=== PATIENT | male | born 1960 | race Asian ===

== ENCOUNTER 2022-12-14 15:58 | Inpatient (IN) | payer MEDICAID ==
[~2022-12-14] VITALS: Ht 170.2 cm; Wt 67.6 kg
[2022-12-14 16:00] VITALS: BP_SYST 138; PULSE 88; RESP 19; TEMP 98.6; O2SAT 100
--- NOTE | 2022-12-14 16:00 | NUR ---
BROUGHT IN BY [facility], PLACED IN BED #2 AND TRIAGED. REPORT GIVEN TO NIMESH
--- NOTE | 2022-12-14 16:19 | NUR ---
DR DESHPANDE IN ROOM FOR EXAM
[2022-12-14] MEDS ORDERED: MAGNESIUM SULFATE 50 ML IV ONE (16:30)
[2022-12-14] MEDS ORDERED: methylPREDNISolone SOD SUCC/PF 62.5 MG/ML VIAL IVP ONE (16:30)
--- NOTE | 2022-12-14 16:41 | NUR ---
ASSUMED CARE, PT IN NAD. RESP EVEN AND UNLABORED, ON RA @99%. SKIN W/D/I. MEDS GIVEN BY COVERING RN MICHELE. WILL CONT TO MONITOR.
[2022-12-14 16:56] LABS: BASOPHILS % (AUTO) 0.6 % (0.0-2.0); EOSINOPHILS # (AUTO) 0.2 K/uL (0.0-0.4); EOSINOPHILS % (AUTO) 3.2 % (0.0-4.0); HEMATOCRIT 44.6 % (36-54); LYMPHOCYTES # (AUTO) 1.5 K/uL (1.0-5.5); LYMPHOCYTES % (AUTO) 21.3 % (20.5-51.5); MEAN CORPUSCULAR HEMOGLOBIN 30 pg (27-31); MEAN CORPUSCULAR HGB CONC 34 % (32-36); MEAN CORPUSCULAR VOLUME 88 fL (79.0-98.0); MONOCYTES # (AUTO) 0.5 K/uL (0.0-1.0); MONOCYTES % (AUTO) 7.4 % (1.7-9.3); NEUTROPHILS # (AUTO) 4.9 K/uL (1.8-7.7); NEUTROPHILS % (AUTO) 67.5 % (40.0-70.0); PLATELET COUNT (AUTO) 293 K/uL (130-430); RED BLOOD CELL COUNT(AUTO) 5.06 MIL/uL (4.2-6.2); RED CELL DISTRIBUTION WIDTH 14.2 % (9.0-15.0); WHITE BLOOD COUNT (AUTO) 7.2 K/uL (4.8-10.8)
[2022-12-14 17:14] LABS: ALANINE AMINOTRANSFERASE 19 U/L (12-78); ALBUMIN 3.5 g/dL (3.4-4.8); ANION GAP 8 (5-15); ASPARTATE AMINOTRANSFERASE 17 U/L (10-37); CALCIUM 8.8 mg/dL (8.4-11.0); CHLORIDE 102 mmol/L (98-107); CREATININE 1.68 mg/dL (0.55-1.30); GFR AFRICAN AMERICAN 54 mL/min (>90); GLUCOSE 162 mg/dL (70-99); TOTAL BILIRUBIN 0.5 mg/dL (0.0-1.0); UREA NITROGEN, BLOOD 33 mg/dL (8-21)
[2022-12-14] MEDS ORDERED: ENOXAPARIN SODIUM 80 MG/0.8 ML SYRINGE SUBCUT ONE (18:15)
--- NOTE | 2022-12-14 18:15 | NUR ---
Admit bed requested Patient will be admitted to care of . Admitted to TELE unit. Diagnosis ACUTE RESP DISTRESS Inpatient (Yes or No) Y Observation (Yes or No) N Orientation concerns or request close to nursing station (Yes or No) N Covid Status NA On vent or bipap N Isolation requirements N Needs a sitter N From Home (Yes or if No enter name of facility) Y Requires Dialysis (Yes or No) N Med Rec Completed (Yes of No) Y
[2022-12-14] MEDS ORDERED: LIP80 PO (18:43)
[2022-12-14] MEDS ORDERED: OMEP20CA15 PO (18:43)
[2022-12-14] MEDS ORDERED: SACU1TAB PO (18:43)
[2022-12-14] MEDS ORDERED: DAPA10TA PO (18:43)
[2022-12-14] MEDS ORDERED: SEMA1PEN3 SQ (18:43)
[2022-12-14] MEDS ORDERED: COR3.125 PO (18:43)
[2022-12-14] MEDS ORDERED: INSU100I26 SQ (18:43)
[2022-12-14] MEDS ORDERED: METF-518 PO (18:43)
[2022-12-14] MEDS ORDERED: CLOP75TA32 PO (18:43)
[2022-12-14] MEDS ORDERED: INSU100V35 SQ (18:43)
--- NOTE | 2022-12-14 18:43 | NUR ---
Medication reconciliation completed with information provided by LIST FROM FAMILY MEMBER. Any prior medication reconciliation on file was reviewed and corrected.
[2022-12-14] MEDS ORDERED: POTASSIUM CHLORIDE 20 MEQ TAB.PRT.SR PO PRN (19:15)
[2022-12-14] MEDS ORDERED: MORPHINE 2 MG/ML INJ. SYRINGE IVP PRN ×2 (19:15)
[2022-12-14] MEDS ORDERED: MAGNESIUM SULFATE 50 ML IV PRN (19:15)
[2022-12-14] MEDS ORDERED: MUPIROCIN 2% TOPICAL OINTMENT 22 GM NS PRN (19:15)
[2022-12-14] MEDS ORDERED: ACETAMINOPHEN 325 MG TABLET PO PRN (19:15)
[2022-12-14] MEDS ORDERED: NALOXONE HCL 0.4 MG/ML AMP (NARCAN) IVP PRN ×2 (19:15)
[2022-12-14] MEDS ORDERED: LORazepam 2 MG/ML VIAL IVP PRN (19:15)
[2022-12-14] MEDS ORDERED: ONDANSETRON HCL 4 MG/2 ML VIAL IVP PRN (19:15)
[2022-12-14] MEDS ORDERED: DEXTROSE 50% JECT 50 ML DISP.SYRIN IVP PRN (19:15)
[2022-12-14] MEDS ORDERED: DOCUSATE SODIUM 100 MG CAPSULE PO PRN (19:15)
--- NOTE | 2022-12-14 19:15 | NUR ---
RECEIVED FOR CARE AFTER REPORT. PLAN OF CARE EXPLAINED TO PT ANF FAMILY.
[2022-12-14] MEDS ORDERED: ENOXAPARIN SODIUM 80 MG/0.8 ML SYRINGE SQ SCH (21:00)
[2022-12-14] MEDS ORDERED: SACUBITRIL/VALSARTAN 24 MG-26 MG 1 TABLET PO SCH (21:00)
--- NOTE | 2022-12-14 21:00 | NUR ---
PT RESTING QUIETLY WITH NO SIGNS OF ACUTE DISTRESS.
[2022-12-14] MEDS ORDERED: INSULIN Lispro 100 UNITS/ML, 3 ML VIAL (humaLOG) ONE (21:34)
[2022-12-14] MEDS: INSULIN LISPRO SLIDING SCALE 100 UNITS/ML, 3 ML VIAL (humaLOG) SUBCUT PRN (21:40)
[2022-12-14] MEDS: CARVEDILOL 3.125 MG TABLET (COREG) PO SCH (22:04)
[2022-12-14] MEDS ORDERED: CARVEDILOL 6.25 MG TABLET (COREG) ONE (22:04)
--- NOTE | 2022-12-14 23:00 | NUR ---
PT RESTING QUIETLY WITH NO SIGNS OF ACUTE DISTRESS.
[2022-12-15] VITALS (7 sets, daily range): BP systolic 122–144; PULSE 86–94; RESP 15–16; TEMP 97.8–98.2; O2SAT 86–100
--- NOTE | 2022-12-15 01:00 | NUR ---
PT RESTING WITH FAMILY AT BEDSIDE. NO SIGNS OF DISTRESS
[2022-12-15] MEDS ORDERED: ATORVASTATIN 20 MG TABLET ONE (01:11)
--- NOTE | 2022-12-15 03:00 | NUR ---
PT RESTING WITH NO ACUTE DISTRESS
--- NOTE | 2022-12-15 03:27 | NUR ---
CONSULTATION PAGED/CALLED Reason for Consultation: HIGH TROP Person Who was Notified: SAE Consulting Physician: BRI [employer]ne[employer] Specialty: Ordering Physician: DANUTA
[2022-12-15 04:40] LABS: BASOPHILS % (AUTO) 0.4 % (0.0-2.0); HEMATOCRIT 45.4 % (36-54); HEMOGLOBIN 15.1 g/dL (14.0-18.0); LYMPHOCYTES % (AUTO) 7.6 % (20.5-51.5); MEAN CORPUSCULAR HEMOGLOBIN 29 pg (27-31); MEAN CORPUSCULAR HGB CONC 33 % (32-36); MEAN CORPUSCULAR VOLUME 87 fL (79.0-98.0); MONOCYTES # (AUTO) 0.2 K/uL (0.0-1.0); MONOCYTES % (AUTO) 1.7 % (1.7-9.3); NEUTROPHILS # (AUTO) 11.8 K/uL (1.8-7.7); NEUTROPHILS % (AUTO) 90.3 % (40.0-70.0); PLATELET COUNT (AUTO) 308 K/uL (130-430); RED BLOOD CELL COUNT(AUTO) 5.22 MIL/uL (4.2-6.2); RED CELL DISTRIBUTION WIDTH 14.4 % (9.0-15.0); WHITE BLOOD COUNT (AUTO) 13.1 K/uL (4.8-10.8)
--- NOTE | 2022-12-15 05:00 | NUR ---
PT ASLEEP WITH FAMILY AT BEDSIDE.
[2022-12-15 05:07] LABS: CALCIUM 9.1 mg/dL (8.4-11.0); CREATININE 1.43 mg/dL (0.55-1.30)
--- NOTE | 2022-12-15 07:15 | NUR ---
RECEIVED PT FROM TIFFANY NAGEL. ASSUMED CARE. PT IS AAXO4. ON R/A. NO COUGH OR RESPIRATORY DISTRESS NOTED. NORMAL S1S2. DENIES N/V/D/C. DISTAL PULSES NORMAL, SKIN CDI, NO EDEMA. DENIES PAIN. SIDERAILS UP X2, DAUGHTER AT BEDSIDE.
--- NOTE | 2022-12-15 07:21 | NUR ---
SPOKE TO DR. TIPTON AND INFORMED HER PT HAS ORDERS FOR SCHEDULED LOVENOX AND PLAVIX. SHE STATED TO DISCONTINUE LOVENOX, AND LET DR. GREGORY FOLLOW UP. DR. TIPTON WAS ALSO INFORMED THAT THE [facility] SHIFT NURSE SHONA ALLEN WAS UNABLE TO GIVE THE ORDERED ENTRESTO BECAUSE PHARMACY DOES NOT CARRY IT. SHE STATED SHE WILL CLARIFY THE ORDER.
[2022-12-15] MEDS ORDERED: INSULIN REGULAR, HUMAN 10 UNITS/0.1 ML, 3 ML VIAL ONE (08:42)
[2022-12-15] MEDS: INSULIN LISPRO SLIDING SCALE 100 UNITS/ML, 3 ML VIAL (humaLOG) SUBCUT PRN ×2 (08:48→14:46)
[2022-12-15] MEDS ORDERED: SACUBITRIL/VALSARTAN 24 MG-26 MG 1 TABLET PO SCH (09:00)
[2022-12-15] MEDS ORDERED: CLOPIDOGREL BISULFATE 75 MG TABLET PO SCH (09:00)
[2022-12-15] MEDS ORDERED: ATORVASTATIN 20 MG TABLET PO SCH (09:00)
--- NOTE | 2022-12-15 09:00 | NUR ---
DR. GREGORY AT BEDSIDE TO ASSESS PT.
[2022-12-15] MEDS: CARVEDILOL 3.125 MG TABLET (COREG) PO SCH (09:09)
--- NOTE | 2022-12-15 09:12 | NUR ---
Held AM Lipitor 80 mg. Pt received Lipitor 80 mg HS 12/14/2022. Notified MD Jaramillo of HS dosage.
[2022-12-15] MEDS ORDERED: ALBUTEROL SULFATE 0.083% 2.5 MG/3 ML VIAL.NEB INH PRN (10:45)
[2022-12-15] MEDS ORDERED: ALBUTEROL SULFATE 0.083% 2.5 MG/3 ML VIAL.NEB INH ONE (10:46)
--- NOTE | 2022-12-15 11:00 | NUR ---
PATIENT RECEIVED FROM THE EMERGENCY ROOM FOR ADMISSION BUT UPON ARRIVAL TO FLOOR PATIENT INDICATED THAT HE WAS HAVING CHEST PAIN. PATIENT HAD ALREADY BEEN EVALUATED BY DR. GREGORY IN ED. CALLED DR. GREGORY AND ADVISED OF PATIENT'S CONCERNS. DR. GREGORY ORDERED STAT ECG AND BREATHING TREATMENT FORE THE PATIENT. PATIENT'S THERAPIES WERE PERFORMED AND AGAIN RN CHECKED WITH DR. GREGORY AND HE STATED THAT ECG SHOULD NO OVERT CHANGES FROM EARLIER EXAM AND RN ADVISED THAT PATIENT WAS FEELING IMPROVED. EARLIER, DR. GREGORY INDICATED THAT IF PATIENT WAS OK BY FEELING AND BY EXAMS PERFORMED, INCLUDING ECHO CARDIOGRAM, PATIENT WOULD BE DISCHARGED TODAY. PATIENT INDICATED HER WOULD LIKE TO GO.
--- NOTE | 2022-12-15 15:00 | NUR ---
Patient has been observed for the last several hours and he indicates he felt most improved after breathing treatment. All lab tests and diagnostics showed no changes according to Dr. Sahni. Patient called his personal assistant professor of business at [facility] and spoke to her in the room. Patient was advised to follow up with assistant professor of business by calling her office for an appointment at 0900 am in the morning. Patient's went to the registration area to find out the process for getting access to records through the portal here at [facility] for patient's assistant professor of business. RN checked patient's blood sugar prior to discharge and with a finger stick glucose of 359 (patient stated he ate several times without taking his blood sugar) patient was given coverage per hospital sliding scale. Patient was advised to check his blood glucose again in 2 hours and then follow his home insulin regimen after that. Patient and stated they understood. Patient also had daughter and son at bedside, both of whom are RN's and they indicated they would be at home with patient over the next few days to make sure that their father gets to his assistant professor of business for follow up care and to observe his conditions and to watch his blood sugar until normalized. Discharge documents were given and patient was escorted out with his family by wheelchair to private vehicle. Teaching done on cardiac issues and diabetes and all questions posed by patient and family were answered prior to discharge. patient was in very good spirits with laughter and joking upon discharge. No sign or symptom of acute distress at this time.
== END 2022-12-15 15:00 | disposition home or self-care (01) | DRG 141 ==
LOC: SED 15:58 → STU 18:10
PROVIDERS: ADMIT Family Medicine; ATTEND Family Medicine
DX: J45.901 Unspecified asthma with (acute) exacerbation (principal); N17.0 Acute kidney failure with tubular necrosis; I21.A1 Myocardial infarction type 2; E87.1 Hypo-osmolality and hyponatremia; E11.22 Type 2 diabetes mellitus with diabetic chronic kidney disease; R06.03 Acute respiratory distress; E78.5 Hyperlipidemia, unspecified; I25.10 Atherosclerotic heart disease of native coronary artery without angina pectoris; I12.9 Hypertensive chronic kidney disease with stage 1 through stage 4 chronic kidney disease, or unspecified chronic kidney disease; N18.30 Chronic kidney disease, stage 3 unspecified; Z20.822 Contact with and (suspected) exposure to COVID-19; I25.5 Ischemic cardiomyopathy; Z88.8 Allergy status to other drugs, medicaments and biological substances; Z79.899 Other long term (current) drug therapy; Z87.74 Personal history of (corrected) congenital malformations of heart and circulatory system; Z86.73 Personal history of transient ischemic attack (TIA), and cerebral infarction without residual deficits; Z79.4 Long term (current) use of insulin; I25.2 Old myocardial infarction
CPT/HCPCS: 36415; 71045; 80048; 80053; 82962; 83735; 83880; 84484; 85025; 85379; 93005; 93306; 94640; 94760; 96365; 96366; 96375; 99285; G0378; J1650; J1815; J2930; J3475; J7613